=== PATIENT | male | born 1970 | race Caucasian/White ===

== ENCOUNTER 2016-10-30 22:28 | Inpatient (IN) | payer BC ==
[2016-10-30] MEDS ORDERED: HYDROCODON-ACE1 EA16 PO (22:54)
[2016-10-30] MEDS ORDERED: XANAX0.5 M1 PO (22:55)
[2016-10-30] MEDS ORDERED: MOTRIN IB200 M1 PO (22:56)
[2016-10-31 01:29] LABS: BASO % 0.3 % (0-2); EOS % 2.9 % (0-7); EOSINOPHIL ABSOLUTE COUNT 0.2 tho/cmm (0.0-0.7); HCT-HEMATOCRIT 35.5 % (36.0-53.5); HGB-HEMOGLOBIN 11.6 gm/dl (13.5-17.0); IMMATURE GRANULOCYTES ABSOLUTE 0.03 tho/cmm (0-0.03); IMMATURE GRANULOCYTES PERCENT 0.4 % (0-0.3); LYMPH % 26.2 % (20-45); MCH (MEAN CORPUSCULAR HGB) 28.9 pg (28.0-32.0); MCHC MEAN CORPUSCULAR HGB CONC 32.7 % (32.0-36.0); MCV (MEAN CELL VOLUME) 88.3 fl (82.0-96.0); MEAN PLATELET VOLUME 9.4 cmc (9.4-12.4); MONO % 8.2 % (0-12); MONOCYTE ABSOLUTE COUNT 0.6 tho/cmm (0.0-1.2); NEUTROPHIL ABSOLUTE COUNT 4.8 tho/cmm (1.6-8.0); NEUTROPHIL-AUTOMATED 4.8 tho/cmm (1.6-8.0); PLATELET COUNT 316 tho/cmm (150-450); RED BLOOD COUNT 4.02 mil/cmm (4.40-5.70); RED CELL DISTRIBUTION WIDTH 13.1 % (12.4-16.4); WHITE BLOOD COUNT 7.7 tho/cmm (4.0-10.0)
[2016-10-31 01:40] LABS: ALB/GLOB RATIO 0.7 (0.8-2.0); ALKALINE PHOSPHATASE 107 U/L (33-138); ALT/SGPT 21 U/L (12-78); ANION GAP 10 mmol/L (0-20); AST/SGOT 15 U/L (10-40); BILIRUBIN,TOTAL 0.2 mg/dl (0.0-1.5); BLOOD UREA NITROGEN 19 mg/dl (6-24); C-REACTIVE PROTEIN 7.4 mg/dl (0-0.9); CALCIUM 8.5 mg/dl (8.5-10.5); CARBON DIOXIDE-VENOUS 28 mmol/L (22-32); CHLORIDE 106 mmol/l (96-110); CREATININE 0.75 mg/dl (0.60-1.30); GLUCOSE 101 mg/dL (70-110); MAGNESIUM 1.9 mg/dl (1.3-2.6); POTASSIUM 3.9 mmol/L (3.7-5.1); SODIUM 140 mmol/L (135-145); eGFR VALUE FOR BLACK >90 mL/Min
[2016-10-31 01:44] LABS: PROTHROMBIN TIME 11.6 SECONDS (9.0-13.6)
[2016-10-31 01:48] LABS: ESR-ERYTHROCYTE SED RATE 69 mm/hr (0-15)
[2016-10-31 02:17] LABS: PROCALCITONIN <0.05 ng/ml (0.05-0.09)
[2016-11-01 06:58] LABS: BASO % 0.4 % (0-2); EOS % 2.8 % (0-7); EOSINOPHIL ABSOLUTE COUNT 0.2 tho/cmm (0.0-0.7); HCT-HEMATOCRIT 37.4 % (36.0-53.5); HGB-HEMOGLOBIN 12.3 gm/dl (13.5-17.0); IMMATURE GRANULOCYTES ABSOLUTE 0.02 tho/cmm (0-0.03); IMMATURE GRANULOCYTES PERCENT 0.3 % (0-0.3); LYMPH % 31.2 % (20-45); LYMPH ABSOLUTE COUNT 2.2 tho/cmm (0.8-4.5); MCHC MEAN CORPUSCULAR HGB CONC 32.9 % (32.0-36.0); MCV (MEAN CELL VOLUME) 88.2 fl (82.0-96.0); MONO % 7.5 % (0-12); MONOCYTE ABSOLUTE COUNT 0.5 tho/cmm (0.0-1.2); NEUTROPHILS % 57.8 % (40-80); PLATELET COUNT 279 tho/cmm (150-450); RED BLOOD COUNT 4.24 mil/cmm (4.40-5.70); RED CELL DISTRIBUTION WIDTH 13.2 % (12.4-16.4); WHITE BLOOD COUNT 6.9 tho/cmm (4.0-10.0)
[2016-11-01 07:10] LABS: ANION GAP 11 mmol/L (0-20); BLOOD UREA NITROGEN 13 mg/dl (6-24); CALCIUM 8.9 mg/dl (8.5-10.5); CARBON DIOXIDE-VENOUS 29 mmol/L (22-32); CHLORIDE 103 mmol/l (96-110); CREATININE 0.84 mg/dl (0.60-1.30); GLUCOSE 108 mg/dL (70-110); POTASSIUM 4.3 mmol/L (3.7-5.1); SODIUM 139 mmol/L (135-145); eGFR VALUE FOR BLACK >90 mL/Min
[2016-11-02 06:18] LABS: CREATININE 0.78 mg/dl (0.60-1.30); eGFR VALUE FOR BLACK >90 mL/Min
[2016-11-03 06:51] LABS: BASO % 0.7 % (0-2); BASO ABSOLUTE COUNT 0.1 tho/cmm (0.0-0.2); EOS % 3.6 % (0-7); EOSINOPHIL ABSOLUTE COUNT 0.3 tho/cmm (0.0-0.7); HCT-HEMATOCRIT 36.8 % (36.0-53.5); HGB-HEMOGLOBIN 11.8 gm/dl (13.5-17.0); IMMATURE GRANULOCYTES ABSOLUTE 0.02 tho/cmm (0-0.03); IMMATURE GRANULOCYTES PERCENT 0.3 % (0-0.3); LYMPH % 31.3 % (20-45); LYMPH ABSOLUTE COUNT 2.2 tho/cmm (0.8-4.5); MCH (MEAN CORPUSCULAR HGB) 28.2 pg (28.0-32.0); MCHC MEAN CORPUSCULAR HGB CONC 32.1 % (32.0-36.0); MONO % 8.7 % (0-12); MONOCYTE ABSOLUTE COUNT 0.6 tho/cmm (0.0-1.2); NEUTROPHIL ABSOLUTE COUNT 3.9 tho/cmm (1.6-8.0); NEUTROPHIL-AUTOMATED 3.9 tho/cmm (1.6-8.0); NEUTROPHILS % 55.4 % (40-80); PLATELET COUNT 304 tho/cmm (150-450); RED BLOOD COUNT 4.18 mil/cmm (4.40-5.70); RED CELL DISTRIBUTION WIDTH 13.2 % (12.4-16.4)
[2016-11-03 06:59] LABS: ANION GAP 10 mmol/L (0-20); BLOOD UREA NITROGEN 17 mg/dl (6-24); CALCIUM 8.7 mg/dl (8.5-10.5); CARBON DIOXIDE-VENOUS 31 mmol/L (22-32); CHLORIDE 106 mmol/l (96-110); CREATININE 0.86 mg/dl (0.60-1.30); GLUCOSE 102 mg/dL (70-110); POTASSIUM 4.7 mmol/L (3.7-5.1); SODIUM 142 mmol/L (135-145); eGFR VALUE FOR BLACK >90 mL/Min
[2016-11-03] MEDS ORDERED: NORCO 7.5-3251 EACH PO (13:46)
[2016-11-03] MEDS ORDERED: CYCLOBENZAPRINE5 M1 PO (13:47)
[2016-11-03] MEDS ORDERED: TRAMADOL HCL50 M2 PO (13:47)
[2016-11-03] MEDS ORDERED: MIRALAX17 G2 PO (13:48)
[2016-11-03] MEDS ORDERED: CEFTRIAXONE2 GM IV (13:51)
== END 2016-11-03 15:30 | DRG 29 ==
LOC: 5EB 22:28 → ORE 11-01 13:33 → PACU 11-01 14:37 → 5EB 11-01 15:45
PROVIDERS: Family Medicine; Registered Nurse; ADMIT Internal Medicine
PROC: 009U0ZZ Drainage of Spinal Canal, Open Approach (ICD-10-PCS; principal; 2016-11-01)
DX: G06.1 Intraspinal abscess and granuloma (principal); M46.27 Osteomyelitis of vertebra, lumbosacral region; M46.46 Discitis, unspecified, lumbar region; B95.1 Streptococcus, group B, as the cause of diseases classified elsewhere; K59.00 Constipation, unspecified; F41.9 Anxiety disorder, unspecified; F10.10 Alcohol abuse, uncomplicated; F11.90 Opioid use, unspecified, uncomplicated
CPT/HCPCS: A9577; C1751; G8978-GP-CI; G8979-GP-CI; G8980-GP-CH; G8987-GO-CH; G8988-GO-CH; G8989-GO-CH; J0696; J1956; J2270; J3010; J3370; J7030; J7050